=== PATIENT | female | born 1980 | race Caucasian/White ===

== ENCOUNTER → 2017-07-05 | Outpatient (CLI) | payer OTHER ==
[~2017-07-05] MED LIST: ASPI81CH PO; AZIT250 PO; BENZ100A; BUPR150ER; FEVERFEW EXTRACT1 GM PO; FLUC150A PO; GUAPHELA PO; HYDGUAL120 PO; Lisinopril2.5 MG PO; Magnesium500 MG PO; PENVK500 PO; PHENTRAMINE; VENL75ER; Vitamin B Comple1 EA PO
== END ==
LOC: LAB SHORT 17:45
DX: K27.9 Peptic ulcer, site unspecified, unspecified as acute or chronic, without hemorrhage or perforation (principal)
CPT/HCPCS: 87338

== ENCOUNTER 2017-07-07 22:08 | Emergency (ER) | payer OTHER ==
[~2017-07-07] VITALS: Ht 172.7 cm; Wt 88.5 kg
[~2017-07-07 22:08] MED LIST changes: -ASPI81CH PO; -FEVERFEW EXTRACT1 GM PO; -Lisinopril2.5 MG PO; -Magnesium500 MG PO; -Vitamin B Comple1 EA PO
[2017-07-07] MEDS ORDERED: Vitamin B Comple1 EA PO (22:46)
[2017-07-07] MEDS ORDERED: Magnesium500 MG PO (22:47)
[2017-07-07 22:49] LABS: BASOPHILS ABSOLUTE AUTO 0.04 K/mm3 (0.00-0.23); BASOPHILS PERCENT AUTO 1 % (0-2); EOSINOPHILS PERCENT AUTO 1 % (0-6); Hematocrit 38.9 % (33.0-51.0); Hemoglobin 13.1 g/dL (11.5-16.0); IMMATURE GRAN ABSOLUTE AUTO 0.02 K/mm3 (0.00-0.10); IMMATURE GRAN PERCENT AUTO 0 % (0-1); LYMPHOCYTES ABSOLUTE AUTO 3.23 K/mm3 (0.84-5.20); LYMPHOCYTES PERCENT AUTO 40 % (21-46); MONOCYTES ABSOLUTE AUTO 0.75 K/mm3 (0.16-1.47); MONOCYTES PERCENT AUTO 9 % (4-13); Mean Corpuscular HGB 31.3 pg (26.0-34.0); Mean Corpuscular HGB Conc 33.7 g/dL (31.5-36.5); Mean Corpuscular Volume 93 fL (80-100); Mean Platelet Volume 9.2 fL (9.1-12.4); NEUTROPHILS ABSOLUTE AUTO 3.86 K/mm3 (1.96-9.15); NEUTROPHILS PERCENT AUTO 48 % (41-73); Platelet Count 232 K/mm3 (150-400); RDW Coefficient Variation 11.9 % (11.7-14.2); RDW Standard Deviation 40.4 fL (35.1-46.3); Red Blood Cell Count 4.19 M/mm3 (3.80-5.20)
[2017-07-07 23:16] LABS: Free Thyroxine 0.85 ng/dL (0.70-1.60); Troponin I <0.015 ng/mL (0.000-0.040)
[2017-07-07 23:17] LABS: Alanine Aminotransfer (ALT/SGP 39 U/L (12-78); Albumin, Blood 3.6 g/dL (3.4-5.0); Albumin/Globulin Ratio 0.9 (0.8-1.8); Alk Phos 61 U/L (50-136); Anion Gap 6 mmol/L (6-16); Aspartate Aminotrans (AST/SGOT 18 U/L (12-37); Bilirubin, Total 0.4 mg/dL (0.1-1.0); Blood Urea Nitrogen 16 mg/dL (8-24); Bun/Creatinine Ratio 24.7 (12.0-20.0); CO2, Blood 29 mmol/L (21-32); Calcium, Blood 8.5 mg/dL (8.5-10.1); Chloride, Blood 105 mmol/L (98-108); Creatinine, Blood 0.65 mg/dL (0.40-1.00); Globulin, Blood 3.8 g/dL (2.2-4.0); Glomerular Filtration Rate >60 (60-); Glucose, Blood 82 mg/dL (70-99); Potassium, Blood 3.9 mmol/L (3.5-5.5); Sodium, Blood 140 mmol/L (136-145); Total Protein, Blood 7.4 g/dL (6.4-8.2)
[2017-07-07 23:20] LABS: Triiodothyronine, Free 3.11 pg/mL (2.18-3.98)
[2018-03-11] MEDS ORDERED: ASPI81CH PO (15:31)
[2018-03-11] MEDS ORDERED: FEVERFEW EXTRACT1 GM PO (15:32)
== END 2017-07-07 23:50 | disposition home or self-care (01) ==
LOC: ER 22:08
PROVIDERS: Emergency Medicine
DX: R00.2 Palpitations (principal); R07.9 Chest pain, unspecified; Z88.5 Allergy status to narcotic agent; Z79.899 Other long term (current) drug therapy; F17.200 Nicotine dependence, unspecified, uncomplicated
CPT/HCPCS: 71046; 80053; 84439; 84443; 84481; 84484; 85025; 93005; 93010; 99284

== ENCOUNTER 2018-03-12 07:36 | Day surgery (SDC) | payer OTHER ==
[2018-03-11 09:31] LABS: BASOPHILS ABSOLUTE AUTO 0.03 K/mm3 (0.00-0.23); BASOPHILS PERCENT AUTO 1 % (0-2); EOSINOPHILS ABSOLUTE AUTO 0.13 K/mm3 (0.00-0.68); EOSINOPHILS PERCENT AUTO 3 % (0-6); Hematocrit 39.3 % (33.0-51.0); Hemoglobin 12.9 g/dL (11.5-16.0); IMMATURE GRAN ABSOLUTE AUTO 0.01 K/mm3 (0.00-0.10); IMMATURE GRAN PERCENT AUTO 0 % (0-1); LYMPHOCYTES ABSOLUTE AUTO 2.16 K/mm3 (0.84-5.20); LYMPHOCYTES PERCENT AUTO 45 % (21-46); MONOCYTES ABSOLUTE AUTO 0.46 K/mm3 (0.16-1.47); MONOCYTES PERCENT AUTO 10 % (4-13); Mean Corpuscular HGB 32.3 pg (26.0-34.0); Mean Corpuscular HGB Conc 32.8 g/dL (31.5-36.5); Mean Corpuscular Volume 98 fL (80-100); Mean Platelet Volume 9.3 fL (9.1-12.4); NEUTROPHILS ABSOLUTE AUTO 2.06 K/mm3 (1.96-9.15); NEUTROPHILS PERCENT AUTO 43 % (41-73); Platelet Count 208 K/mm3 (150-400); RDW Coefficient Variation 11.9 % (11.7-14.2); White Blood Cell Count 4.85 K/mm3 (4.00-11.30)
[2018-03-11 09:53] LABS: Anion Gap 6 mmol/L (6-16); Blood Urea Nitrogen 11 mg/dL (8-24); Bun/Creatinine Ratio 16.4 (12.0-20.0); CO2, Blood 28 mmol/L (21-32); Calcium, Blood 8.4 mg/dL (8.5-10.1); Chloride, Blood 106 mmol/L (98-108); Creatinine, Blood 0.67 mg/dL (0.40-1.00); Glomerular Filtration Rate >60 (60-); Glucose, Blood 83 mg/dL (70-99); Potassium, Blood 4.4 mmol/L (3.5-5.5); Sodium, Blood 140 mmol/L (136-145)
[2018-03-11 09:54] LABS: Percent Saturation 45.5 % (15.0-50.0)
[2018-03-11 09:59] LABS: International Normalized Ratio 1.09; Prothrombin Time Results 11.2 Sec (9.7-11.5)
[~2018-03-12] VITALS: Ht 170.2 cm; Wt 78.2 kg
[~2018-03-12 07:36] MED LIST changes: +ASPI81CH PO; +FEVERFEW EXTRACT1 GM PO; +Magnesium500 MG PO; +Vitamin B Comple1 EA PO
[2018-03-12] MEDS ORDERED: Lisinopril2.5 MG PO (07:37)
== END 2018-03-12 10:00 | disposition home or self-care (01) ==
LOC: MHTC 07:36
PROVIDERS: Internal Medicine Cardiovascular Disease
PROC: B246ZZ4 Ultrasonography of Right and Left Heart, Transesophageal (ICD-10-PCS; principal; 2018-03-12)
DX: Q21.1 Atrial septal defect (principal); I42.9 Cardiomyopathy, unspecified; R53.83 Other fatigue; I51.7 Cardiomegaly
CPT/HCPCS: 36415; 80048; 82728; 83540; 83550; 85025; 85610; 93312; 93321; 93325; 99152; 99153; J2250; J2310; J3010; J7030

== ENCOUNTER → 2019-10-19 | Outpatient (CLI) | payer OTHER ==
[~2019-10-19] MED LIST changes: +Lisinopril2.5 MG PO
[2019-10-20 07:10] LABS: HCV ANTIBODY <0.1 (0.0-0.9)
== END | disposition home or self-care (01) ==
LOC: LAB SHORT 17:07 → LAB 17:07
PROVIDERS: Physician Assistant
DX: Z77.21 Contact with and (suspected) exposure to potentially hazardous body fluids (principal)
CPT/HCPCS: 84460; 86317; 86703; 86803